=== PATIENT | female | born 1945 | race Caucasian/White ===

== ENCOUNTER → 2017-07-08 | Outpatient (CLI) | payer OTHER ==
[~2017-07-08] MED LIST: IOPAMIDOL (ISOVUE-300) 100 ML BTL ONE
== END ==
LOC: CIMAGING 10:37
PROVIDERS: ATTEND Internal Medicine
DX: K57.20 Diverticulitis of large intestine with perforation and abscess without bleeding (principal); K59.00 Constipation, unspecified
CPT/HCPCS: 74177; Q9967; 99000-PO

== ENCOUNTER 2017-07-22 17:27 | Emergency (ER) | payer OTHER ==
--- NOTE | 2017-07-22 17:51 | EDPHY ---
H & P Time Seen by Provider: 07/22/17 17:29 HPI/ROS: CHIEF COMPLAINT: Pleuritic chest and back pain HISTORY OF PRESENT ILLNESS: This is a 71-year-old female with a history of hypertension, who was recently diagnosed with diverticulitis complicated by C difficile presenting with 1 week of severe and worsening pleuritic chest and back pain. Patient was diagnosed with diverticulitis approximately 3 weeks ago and was hospitalized at [facility] [place] overnight. She was discharged on Flagyl as well as levofloxacin. She followed up with her primary care physician Dr. Ackerman and had a repeat CT scan demonstrating resolution of the diverticulitis about a week later. At that time the patient also reported onset of abdominal discomfort crampy pain with some diarrhea. Stool studies were positive for C difficile. She has been on oral vancomycin for a week, last dose 4 days ago. Seven days ago, while still on the oral vancomycin, she began to notice significant discomfort in her thoracic spine when she needed to move, lift her arms, or take a breath. Symptoms have been ongoing and worsening. She saw chiropractor 5 days ago and had manipulation of the thoracic spine which may have improved her symptoms somewhat. She has been using Tylenol on occasion with some short-term relief. Patient is also complaining of generally feeling weak and feels that she is off balance when she is walking. She notes discomfort in her back when she is needing to lift anything with her arms such as putting away dishes. She has not had any fevers but has reported feeling chilled. Over the last several days she has also noticed the development of anterior chest discomfort when taking a deep breath. She denies palpitations. She denies any shortness of breath while at rest. She has had no vomiting or ongoing diarrhea. No urinary complaints. No headache or lightheadedness. Patient denies any numbness or tingling in her arms or legs but notes that the right upper extremity was painful shortly after starting her antibiotics and this discomfort has continued. REVIEW OF SYSTEMS: Aside from elements discussed in the HPI, a comprehensive 10-point review of systems was reviewed and is negative. PAST MEDICAL HISTORY: Diverticulitis, C difficile, hypertension. SOCIAL HISTORY: Patient is . Nonsmoker. VITAL SIGNS Reviewed by me. GENERAL: Well-developed, well-nourished, appears uncomfortable when having to take a deep breath or move about the bed. HEENT: Atraumatic. Eyes: No icterus, no injection. Mouth: moist mucous membranes. No erythema or lesions. Neck: supple with no adenopathy. No cervical tenderness palpation. CHEST: Tenderness to palpation across the anterior chest especially near the costochondral junctions anteriorly. Tenderness to palpation in the mid thoracic spine. No erythema. No rash. No crepitus. LUNGS: Clear to auscultation bilaterally, no wheezes, rhonchi or rales. CARDIAC: Regular rate and rhythm, no rubs, murmurs or gallops. ABDOMEN: Soft, nontender, nondistended, bowel sounds normal. BACK: No CVA tenderness. EXTREMITIES: No trauma. Slight swelling of the right ankle. Range of motion is normal throughout. NEURO: Alert and oriented, cranial nerves 2-12 are intact. Motor strength is normal upper extremities. Sensation is intact in the upper extremities. Motor strength is normal lower extremities exception of weakness in her right leg. Patient states that this is pre-existing and for some time she has had difficulty lifting and moving the right leg. SKIN: Warm and dry, no rash. PSYCHIATRIC: Normal mentation, no agitation. Constitutional: Initial Vital Signs Temperature (C) 36.7 C 07/22/17 17:32 Heart Rate 98 07/22/17 17:32 Respiratory Rate 16 07/22/17 17:32 Blood Pressure 171/93 H 07/22/17 17:32 O2 Sat (%) 93 07/22/17 17:32 O2 Delivery Mode Nasal Cannula O2 (L/minute) 1 Allergies/Adverse Reactions: No Known Allergies Allergy (Verified 07/22/17 17:37) Home Medications: Medication Instructions Recorded Aspirin 02/27/10 CALTRATE 600 02/27/10 GLUCOSAMINE SULFATE 02/27/10 Klor-Con 02/27/10 MULTIVITAMINS 02/27/10 Biotin 05/25/11 Losartan Potassium 05/25/11 Hydrochlorothiazide 02/25/13 Meloxicam 02/25/13 Methimazole 02/25/13 oxyCODONE/APAP 5/325 [Percocet 1 tab PO QID PRN #10 tab 07/22/17 5/325 (*)] predniSONE 40 mg PO DAILY #6 tab 07/22/17 Medical Decision Making - Diagnostics Imaging Results: Imaging Impressions Chest/Thorax CTA 07/22/17 18:21 Impression: 1. No evidence of thrombopulmonary embolic disease. 2. Minimal degenerative disk disease unchanged since 2013. No compression fracture or evidence of paraspinal inflammatory process. 3. Clear lungs. No interstitial edema or effusion. 4. Multinodular thyroid gland unchanged since 2013. Findings discussed with Emergency Department physician, Ally Spence MD, on 07/22/2017, 19:13. Imaging: Discussed imaging studies w/ call center coordinator Radiologist ED Course/Re-evaluation: 71-year-old female presenting with significant thoracic back discomfort which is worse with breathing or respirations as well as anterior chest discomfort also worse with breathing and respirations. EKG obtained in Dr. jones office reveals normal sinus rhythm. No ischemic changes. Chest x-ray obtained prior to the patient's evaluation emergency department was normal. Patient IV placed and received Dilaudid for pain. Labs including a CBC, chemistries, sed rate, CRP, troponin and D-dimer were all obtained. Patient does have an elevated CRP and elevated sed rate. Troponin is negative. D-dimer is elevated. Patient has CT scan of the chest obtained. There is no pulmonary embolism. Imaging studies of the thoracic spine demonstrate no hot fracture. No inflammatory changes around the thoracic spine to suggest diskitis. No pleural effusions. No pericardial effusions. Vascular structures are normal. No pneumonia. Patient reports improvement with pain medications. It remains unclear to me the cause of the patient's discomfort. Differential includes inflammatory reactions similar to a pleurisy or costochondritis, thoracic spinal pathology, spinal cord pathology, diskitis, or bilateral shingles. Patient received 125 mg dose of Solu-Medrol. Her course was discussed with Dr. Ma, who is on-call for Dr. Ackerman. The patient is to contact Dr. Ackerman office in the morning and to arrange an MRI as an outpatient. I discussed these findings with the patient and her . I discussed the plan with the patient and her . Patient was discharged with a prescription for Percocet, Zofran, and prednisone. Patient feels comfortable being discharged home and assures me that she will follow up. We discussed return precautions including worsening pain despite the above measures, sudden onset of weakness, numbness, tingling in the arms or legs, fevers, cough, or rash. Differential Diagnosis: Differential diagnoses for the patient's symptom complex was considered including but not limited to pleurisy, costochondritis, diskitis, osteomyelitis , pulmonary embolism, cardiac cause, electrolyte abnormality, arrhythmia, effusion. - Data Points Laboratory Results: Laboratory Results 07/22/17 17:40 07/22/17 17:40 07/22/17 07/22/17 07/22/17 18:15 18:05 17:45 WBC RBC Hgb Hct MCV MCH MCHC RDW Plt Count MPV Neut % (Auto) Lymph % (Auto) Dent % (Auto) Eos % (Auto) Baso % (Auto) Nucleat RBC Rel Count Absolute Neuts (auto) Absolute Lymphs (auto) Absolute Monos (auto) Absolute Eos (auto) Absolute Basos (auto) Absolute Nucleated RBC Immature Gran % Immature Gran # ESR PT 13.5 SEC SEC (12.0-15.0) INR 1.04 (0.83-1.16) D-Dimer 1.82 ug/mLFEU H ug/mLFEU (0.00-0.50) VBG Lactic Acid Sodium Potassium Chloride Carbon Dioxide Anion Gap BUN Creatinine Estimated GFR Glucose Calcium Total Bilirubin Conjugated Bilirubin Unconjugated Bilirubin AST ALT Alkaline Phosphatase Creatine Kinase Troponin I C-Reactive Protein 137.3 mg/L H mg/L (<10.0) Total Protein Albumin Lipase Urine Color YELLOW Urine Appearance HAZY Urine pH 6.0 (5.0-7.5) Ur Specific [place] 1.010 (1.002-1.030) Urine Protein NEGATIVE (NEGATIVE) Urine Ketones NEGATIVE (NEGATIVE) Urine Blood 1+ H (NEGATIVE) Urine Nitrate NEGATIVE (NEGATIVE) Urine Bilirubin NEGATIVE (NEGATIVE) Urine Urobilinogen 0.2 EU EU (0.2-1.0) Ur Leukocyte Esterase NEGATIVE (NEGATIVE) Urine RBC 3-5 /hpf H /hpf (0-3) Urine WBC NONE SEEN /hpf /hpf (0-3) Ur Epithelial Cells 2+ /lpf H /lpf (NONE-1+) Urine Bacteria TRACE /hpf H /hpf (NONE SEEN) Urine Glucose NEGATIVE (NEGATIVE) 07/22/17 07/22/17 07/22/17 17:40 17:40 17:40 WBC RBC Hgb Hct MCV MCH MCHC RDW Plt Count MPV Neut % (Auto) Lymph % (Auto) Dent % (Auto) Eos % (Auto) Baso % (Auto) Nucleat RBC Rel Count Absolute Neuts (auto) Absolute Lymphs (auto) Absolute Monos (auto) Absolute Eos (auto) Absolute Basos (auto) Absolute Nucleated RBC Immature Gran % Immature Gran # ESR PT REJ INR TNP D-Dimer TNP VBG Lactic Acid 1.5 mmol/L mmol/L (0.7-2.1) Sodium 145 mEq/L H mEq/L (134-144) Potassium 4.4 mEq/L mEq/L (3.5-5.2) Chloride 99 mEq/L mEq/L (97-110) Carbon Dioxide 28 mEq/l mEq/l (22-31) Anion Gap 18 mEq/L H mEq/L (8-16) BUN 19 mg/dL mg/dL (7-23) Creatinine 0.6 mg/dL mg/dL (0.6-1.0) Estimated GFR > 60 Glucose 110 mg/dL H mg/dL (70-100) Calcium 10.0 mg/dL mg/dL (8.5-10.4) Total Bilirubin 0.4 mg/dL mg/dL (0.1-1.4) Conjugated Bilirubin 0.3 mg/dL mg/dL (0.0-0.5) Unconjugated Bilirubin 0.1 mg/dL mg/dL (0.0-1.1) AST 28 IU/L IU/L (14-46) ALT 36 IU/L IU/L (9-52) Alkaline Phosphatase 100 IU/L IU/L (38-126) Creatine Kinase 96 IU/L IU/L (0-156) Troponin I < 0.012 ng/mL ng/mL (0.000-0.034) C-Reactive Protein Total Protein 7.7 g/dL g/dL (6.3-8.2) Albumin 4.1 g/dL g/dL (3.5-5.0) Lipase 126 IU/L IU/L (23-300) Urine Color Urine Appearance Urine pH Ur Specific [place] Urine Protein Urine Ketones Urine Blood Urine Nitrate Urine Bilirubin Urine Urobilinogen Ur Leukocyte Esterase Urine RBC Urine WBC Ur Epithelial Cells Urine Bacteria Urine Glucose 07/22/17 17:40 WBC 7.98 10^3/uL 10^3/uL (3.80-9.50) RBC 4.24 10^6/uL 10^6/uL (4.18-5.33) Hgb 13.2 g/dL g/dL (12.6-16.3) Hct 39.2 % % (38.0-47.0) MCV 92.5 fL fL (81.5-99.8) MCH 31.1 pg pg (27.9-34.1) MCHC 33.7 g/dL g/dL (32.4-36.7) RDW 13.0 % % (11.5-15.2) Plt Count 319 10^3/uL 10^3/uL (150-400) MPV 9.5 fL fL (8.7-11.7) Neut % (Auto) 61.4 % % (39.3-74.2) Lymph % (Auto) 26.8 % % (15.0-45.0) Dent % (Auto) 9.9 % % (4.5-13.0) Eos % (Auto) 1.3 % % (0.6-7.6) Baso % (Auto) 0.3 % % (0.3-1.7) Nucleat RBC Rel Count 0.0 % % (0.0-0.2) Absolute Neuts (auto) 4.91 10^3/uL 10^3/uL (1.70-6.50) Absolute Lymphs (auto) 2.14 10^3/uL 10^3/uL (1.00-3.00) Absolute Monos (auto) 0.79 10^3/uL 10^3/uL (0.30-0.80) Absolute Eos (auto) 0.10 10^3/uL 10^3/uL (0.03-0.40) Absolute Basos (auto) 0.02 10^3/uL 10^3/uL (0.02-0.10) Absolute Nucleated RBC 0.00 10^3/uL 10^3/uL (0-0.01) Immature Gran % 0.3 % % (0.0-1.1) Immature Gran # 0.02 10^3/uL 10^3/uL (0.00-0.10) ESR 52 MM/HR H MM/HR (0-30) PT INR D-Dimer VBG Lactic Acid Sodium Potassium Chloride Carbon Dioxide Anion Gap BUN Creatinine Estimated GFR Glucose Calcium Total Bilirubin Conjugated Bilirubin Unconjugated Bilirubin AST ALT Alkaline Phosphatase Creatine Kinase Troponin I C-Reactive Protein Total Protein Albumin Lipase Urine Color Urine Appearance Urine pH Ur Specific [place] Urine Protein Urine Ketones Urine Blood Urine Nitrate Urine Bilirubin Urine Urobilinogen Ur Leukocyte Esterase Urine RBC Urine WBC Ur Epithelial Cells Urine Bacteria Urine Glucose Medications Given: Discontinued Medications Hydromorphone HCl (Dilaudid) 1 mg IVP EDNOW ONE Stop: 07/22/17 17:53 Last Admin: 07/22/17 17:57 Dose: 1 mg Sodium Chloride (Ns) 1,000 mls @ 0 mls/hr IV ONCE ONE; Wide Open PRN Reason: Protocol Stop: 07/22/17 17:53 Last Admin: 07/22/17 17:57 Dose: 1,000 mls Methylprednisolone Sodium Succinate (Solu-Medrol) 125 mg IVP EDNOW ONE Stop: 07/22/17 19:19 Last Admin: 07/22/17 19:25 Dose: 125 mg Ondansetron HCl (Zofran) 4 mg IVP EDNOW ONE Stop: 07/22/17 19:22 Last Admin: 07/22/17 19:25 Dose: 4 mg Ondansetron HCl (Zofran Odt 4 Mg Prepack#2) 1 btl TAKEHOME EDNOW ONE Stop: 07/22/17 19:41 Last Admin: 07/22/17 19:51 Dose: 1 btl Ondansetron HCl (Zofran) 4 mg IVP EDNOW ONE Stop: 07/22/17 19:48 Last Admin: 07/22/17 19:50 Dose: 4 mg Oxycodone/Acetaminophen (Percocet 5/325mg Prepack#4) 1 btl TAKEHOME EDNOW ONE Stop: 07/22/17 19:41 Last Admin: 07/22/17 19:52 Dose: 1 btl Departure - Departure Disposition: Home, Routine, Self-Care Clinical Impression: Chest wall pain, Posterior chest pain, Thoracic spine pain Condition: Good Instructions: Oxycodone/Acetaminophen (By mouth), Ondansetron (By mouth), Chest Pain (ED), Pleurisy (DC), Thoracic Pain (ED) Additional Instructions: No definite cause of your discomfort has been identified. You have no evidence of a pneumonia, fracture, blood clot in the lungs, abnormality to your heart or blood vessels in the chest, and no evidence of a fracture of your spine. You been given a prescription for Percocet. Please take this as needed for severe discomfort. You have also been given a prescription for prednisone. This should help with any inflammatory source of this discomfort. I discussed your case with Dr. Ma, who was on-call for Dr. Ackerman. We would like you to call Dr. Ackerman's office tomorrow. An MRI of the thoracic spine may be needed. If you develop any fevers, shortness of breath, rash, worsening pain despite the above treatment, numbness or tingling in her arms or legs, or other concerns , please return to the emergency department. Referrals: Joe Ackerman MD [Primary Care Provider] - As per Instructions Prescriptions: oxyCODONE/APAP 5/325 [Percocet 5/325 (*)] 1 tab PO QID PRN #10 tab PRN Reason: Pain predniSONE 40 mg PO DAILY #6 tab
[2017-07-22] MEDS ORDERED: HYDROmorphONE/DILAUDID 1 MG/ML INJ IVP ONE (17:52)
[2017-07-22] MEDS ORDERED: NS 1,000 ML IV ONE (17:52)
[2017-07-22 17:56] LABS: % IMMATURE GRANULYOCYTES 0.3 % (0.0-1.1); ABSOLUTE IMMATURE GRANULOCYTES 0.02 10^3/uL (0.00-0.10); ADD DIFF? NO; ADD MORPH? NO; ADD SCAN? NO; ATYPICAL LYMPHOCYTE FLAG 0 (0-99); FRAGMENT RBC FLAG 0 (0-99); HEMATOCRIT 39.2 % (38.0-47.0); HEMOGLOBIN 13.2 g/dL (12.6-16.3); LEFT SHIFT FLG 10 (0-99); LIPEMIA HEMOLYSIS FLAG 80 (0-99); MEAN CELL HEMOGLOBIN 31.1 pg (27.9-34.1); MEAN CELL HEMOGLOBIN CONCENTR. 33.7 g/dL (32.4-36.7); MEAN CELL VOLUME 92.5 fL (81.5-99.8); MEAN PLATELET VOLUME 9.5 fL (8.7-11.7); PLATELET CLUMPS FLAG 0 (0-99); PLATELET COUNT 319 10^3/uL (150-400); RED BLOOD CELL COUNT 4.24 10^6/uL (4.18-5.33)
[2017-07-22 18:09] LABS: ALANINE AMINOTRANSFERASE 36 IU/L (9-52); ALBUMIN 4.1 g/dL (3.5-5.0); ALKALINE PHOSPHATASE 100 IU/L (38-126); ANION GAP 18 mEq/L (8-16); ASPARTATE AMINOTRANSFERASE 28 IU/L (14-46); BILIRUBIN,TOTAL 0.4 mg/dL (0.1-1.4); BILIRUBIN-CONJUGATED 0.3 mg/dL (0.0-0.5); BILIRUBIN-UNCONJUGATED 0.1 mg/dL (0.0-1.1); CARBON DIOXIDE 28 mEq/l (22-31); CHLORIDE 99 mEq/L (97-110); CREATININE 0.6 mg/dL (0.6-1.0); GLOMERULAR FILTRATION RATE > 60; GLUCOSE 110 mg/dL (70-100); POTASSIUM 4.4 mEq/L (3.5-5.2); SODIUM 145 mEq/L (134-144); TOTAL PROTEIN 7.7 g/dL (6.3-8.2)
[2017-07-22 18:19] LABS: TROPONIN I < 0.012 ng/mL (0.000-0.034)
[2017-07-22 18:20] LABS: INR 1.04 (0.83-1.16); PROTIME(PATIENT) 13.5 SEC (12.0-15.0)
[2017-07-22 18:23] LABS: SEDIMENTATION RATE 52 MM/HR (0-30)
[2017-07-22 18:23] LABS: COLOR YELLOW; LEUKOCYTE ESTERASE,URINE NEGATIVE (NEGATIVE); NITRITE,URINE NEGATIVE (NEGATIVE)
[2017-07-22] MEDS ORDERED: IOPAMIDOL (ISOVUE 370) 100 ML BTL IV ONE (18:28)
[2017-07-22 18:30] LABS: BACTERIA TRACE /hpf (NONE SEEN); WBC,URINE NONE SEEN /hpf (0-3)
[2017-07-22 18:48] VITALS: RESP 16
[2017-07-22] MEDS ORDERED: methylPREDNISolone SOD SUCC 125 MG/2 ML VIAL IVP ONE (19:18)
[2017-07-22] MEDS ORDERED: ONDANSETRON 4 MG/2 ML VIAL IVP ONE ×2 (19:21→19:47)
[2017-07-22] MEDS ORDERED: ONDANSETRON 4MG PREPACK#2 BTL TAKEHOME ONE (19:40)
[2017-07-22] MEDS ORDERED: OXYCODONE/APAP 5/325MG PREPACK#4 BTL TAKEHOME ONE (19:40)
[2017-07-22 20:20] VITALS: BP 143/80; PULSE 86; TEMP 98.2; O2SAT 92
== END 2017-07-22 20:10 | disposition home or self-care (01) ==
LOC: CED 17:27
DX: R07.89 Other chest pain (principal); I10 Essential (primary) hypertension; M54.6 Pain in thoracic spine; E86.9 Volume depletion, unspecified; Z79.82 Long term (current) use of aspirin
CPT/HCPCS: 71275; 93005; 96361; 96374; 96375; 96376; 99285; G0463; J1170; J2405; J2930; Q9967; 80048-PO; 80076-PO; 81003-PO; 81015-PO; 82550-PO; 83605-PO; 83690-PO; 84484-PO; 85025-PO; 85378-PO; 85610-PO; 85652-PO

== ENCOUNTER → 2017-07-22 | Outpatient (CLI) | payer OTHER | LOC: CIMAGING 16:47 | PROVIDERS: ATTEND Internal Medicine | DX: R07.9 Chest pain, unspecified (principal) | CPT/HCPCS: 71020-PO ==

== ENCOUNTER → 2017-07-28 | Outpatient (CLI) | payer OTHER ==
[~2017-07-28] MED LIST changes: +GADOBUTROL 10 ML VIAL IVP ONE; -IOPAMIDOL (ISOVUE-300) 100 ML BTL ONE
== END ==
LOC: FIMAGING 10:47
PROVIDERS: ATTEND Internal Medicine
DX: R07.81 Pleurodynia (principal); M54.9 Dorsalgia, unspecified; M25.519 Pain in unspecified shoulder; M50.30 Other cervical disc degeneration, unspecified cervical region
CPT/HCPCS: 72156; 72157; A9585

== ENCOUNTER → 2017-08-03 | Outpatient (CLI) | payer OTHER | LOC: CIMAGING 11:49 | PROVIDERS: ATTEND Internal Medicine | DX: M25.871 Other specified joint disorders, right ankle and foot (principal) | CPT/HCPCS: 73610; G0463 ==

== ENCOUNTER → 2017-08-23 | Outpatient (CLI) | payer OTHER | LOC: BHCLAF 14:45 | PROVIDERS: ATTEND Internal Medicine Cardiovascular Disease | DX: R07.9 Chest pain, unspecified (principal) | CPT/HCPCS: 93306-PO ==

== ENCOUNTER → 2018-07-19 | Outpatient (CLI) | payer OTHER | LOC: BRMIMAGING 14:24 | PROVIDERS: ATTEND Internal Medicine Endocrinology, Diabetes & Metabolism | DX: E05.90 Thyrotoxicosis, unspecified without thyrotoxic crisis or storm (principal) ==